=== PATIENT | female | born 1930 | race Caucasian/White ===

== ENCOUNTER 2017-02-15 09:16 | Inpatient (IN) | payer MEDICARE, BC ==
[~2017-02-15] VITALS: Ht 167.6 cm; Wt 70.7 kg
--- NOTE | ~2017-02-15 | HP ---
[facility] AGE: 86 Y [address] ROOM: [place] [id number] LOCATION: [facility] ADMIT DATE: 02/15/2017 History & Physical DISCHARGE DATE: FAMILY PHYSICIAN: Ashok Rodas MD ATTENDING PHYSICIAN: KAYLEE CHENG DATE OF SERVICE: CHIEF COMPLAINT: Failure to ambulate. HISTORY OF PRESENT ILLNESS: An 86-year-old lady with past medical history of hypertension; hyperlipidemia; chronic kidney disease, stage 3; and gout, who lives at home with the ; also has severe dementia and minimal verbalism, presented to the emergency department when she was brought in by her . Most of the history was obtained from the . stated that this morning, she just could not get out of the bed and could not stand up or sit up and failed to ambulate which she is able to do usually, so he brought her in and could not care for her at home. On my encounter, an 86-year-old pleasant lady, who speaks minimally in yes or no answers. On questioning, she said that she is feeling hot and complained of abdominal pain as well as left wrist pain. She denied any chest pain, any shortness of breath, or any dizziness at this point. stated that she never had any blood clots or myocardial infarctions in the past. REVIEW OF SYSTEMS: All other systems reviewed were negative, except what is mentioned in the HPI. ALLERGIES: THE PATIENT IS ALLERGIC TO BACTRIM. PAST MEDICAL HISTORY: Severe dementia; hypertension; hyperlipidemia; chronic kidney disease, stage 3; and gout. MEDICATIONS: Being reconciled right now. SOCIAL HISTORY: Quit smoking in 1991. Lives with at home. FAMILY HISTORY: Family history was reviewed and was unrelevant to the current condition. PATIENT'S NAME: [facility] AGE: 86 Y [address] ROOM: [address] [place] [id number] LOCATION: [facility] ADMIT DATE: 02/15/2017 History & Physical DISCHARGE DATE: FAMILY PHYSICIAN: Ashok Rodas MD ATTENDING PHYSICIAN: KAYLEE CHENG PHYSICAL EXAMINATION: VITAL SIGNS: Blood pressure 157/67, temperature 99, pulse 90, respiratory rate of 16. GENERAL: No acute distress. Appears alert and oriented. CARDIOVASCULAR: S1 and S2. No murmurs, gallops, or rubs. LUNGS: Clear to auscultation bilaterally. ABDOMEN: Soft. Tender in all quadrants. Bowel sounds are present. EXTREMITIES: +2 extremity edema, more on the left side than the right. HEENT: Head: Atraumatic, normocephalic. MUSCULOSKELETAL: Left wrist swelling and tenderness on passive as well as active motion noted. Erythema on both palmar as well as dorsal aspect noted. SKIN: No bruises noted, but erythema of the left wrist noted. LABORATORY DATA: Lab work done today in the emergency department was significant for lactate of 2.1. WBC count of 15, platelets 230, hemoglobin of 11. Creatinine 1.2, BUN 26, sodium 138, potassium 3.8, chloride 102, bicarb 23. Liver enzymes were within normal limits. ESR was up to 50. INR normal. UA was negative for any infection. CRP was elevated at 5.9. Procalcitonin was negative. The left wrist joint was tapped by the emergency physician showing pink color of the synovial fluid and clear turbidity. WBC count was only 55. No crystals were seen. ASSESSMENT: 1. Left wrist swelling, likely cellulitis versus gout. 2. Acute kidney injury on chronic kidney disease. 3. Hypertension. 4. Hyperlipidemia. 5. Dementia. PLAN: We are going to admit this patient for observation, give IV fluids, obtain blood cultures, and start our antibiotics including ertapenem. We were not able to see any crystals neither high white count, but she did have a history of gout. We will treat her with colchicine for only two doses. Treat the cellulitis with ertapenem. DVT prophylaxis will be provided. CT scan of the abdomen was done and per verbal report was negative for any acute intraabdominal abnormalities. We will watch her in the hospital until a definitive diagnosis comes up. Her further management will depend on her progress in the hospital. PATIENT'S NAME: DARRYL REDMOND [facility] AGE: 86 Y [address] ROOM: [place] [address] LOCATION: [facility] ADMIT DATE: 02/15/2017 History & Physical DISCHARGE DATE: FAMILY PHYSICIAN: Ashok Rodas MD ATTENDING PHYSICIAN: KAYLEE CHENG MD SARAHY/modl /[id number] D: [id number] T: [id number] HISTORY & PHYSICAL
--- NOTE | ~2017-02-15 | CON ---
[facility] AGE: 86 Y [address] ROOM: [id number] [place], [place] [address] LOCATION: [facility] ADMIT DATE: 02/15/2017 Consultation DISCHARGE DATE: 02/17/2017 FAMILY PHYSICIAN: Ashok Rodas MD ATTENDING PHYSICIAN: Kristi Burton DATE OF CONSULTATION: 02/17/2017 ORTHOPEDIC CONSULTATION CHIEF COMPLAINT/REASON FOR CONSULTATION: Left knee pain. HISTORY OF PRESENT ILLNESS: This 86-year-old female has been at [facility] since 02/15/2017 with generalized weakness, leukocytosis, and elevated inflammatory markers status post joint aspiration. She has a 5-day history of pain and swelling in her left knee and questionable history of gout. She was placed on some steroids and that has helped a little, but it still hurts and causes her to limp. It keeps her up at night. It is both medially and laterally. She has a history of significant dementia. Her helps with the history. No fevers or chills. Pain is worse with activity and relieved by rest. She says she may have had a low-grade fever at home. She is on no antibiotics. No nausea or vomiting or diarrhea or cough or shortness of breath. PAST MEDICAL HISTORY: 1. Hypertension. 2. Dyslipidemia. 3. Osteoarthritis. 4. Lumbar spinal stenosis. 5. Osteoporosis. 6. Osteopenia. 7. Cataract. 8. Gout. 9. Gastroesophageal reflux disease. 10. Dementia. PAST SURGICAL HISTORY: 1. Appendectomy. 2. Right knee surgery. 3. Hysterectomy. 4. Umbilical herniorrhaphy. SOCIAL HISTORY: No tobacco or alcohol or illicit drug use. She lives with her at [facility] AGE: 86 Y [address] ROOM: [id number] [place], [place] [address] LOCATION: [facility] ADMIT DATE: 02/15/2017 Consultation DISCHARGE DATE: 02/17/2017 FAMILY PHYSICIAN: Ashok Rodas MD ATTENDING PHYSICIAN: Kristi Burton [place]. ALLERGIES: LODINE, BACTRIM, AND CELEBREX. PRIMARY CARE DOCTOR: Ashok Rodas MD MEDICATIONS: 1. Allopurinol. 2. Amlodipine. 3. Aspirin. 4. Docusate. 5. Ezetimibe. 6. Furosemide. 7. Gabapentin. 8. Losartan. 9. Multiple vitamin. 10. Spironolactone. 11. Pravastatin. 12. Omeprazole. 13. Calcium. REVIEW OF SYSTEMS: No coughs, colds, fevers, chills, or sore throats. No chest pain, shortness of breath, or trouble breathing. She has had generalized weakness. No nausea, vomiting, or diarrhea. No dysuria or hematuria. She does have some visual and auditory hallucinations at times. PHYSICAL EXAMINATION: GENERAL: She is awake, alert, and oriented x2. Mood and affect; forgetful. VITAL SIGNS: Blood pressure 122/63, pulse 72, respirations 16, and temperature 97.3. She has been afebrile since arriving in the hospital on 02/15/2017. HEENT: Atraumatic and normocephalic. PERRL. EOMI. Throat; clear. NECK: Supple. CHEST: Clear to auscultation. HEART: Regular rhythm. ABDOMEN: Soft, nontender. EXTREMITIES: Shoulders, elbows, and wrists without pain or movement. Left knee has a mild effusion. Trace warmth, trace swelling. Range is 0 to 140 degrees. Drawer and Elijah's negative. No collateral laxity. She ambulates with a limp. She is weak. Leg lengths equal to pelvis level. Knee alignment is satisfactory. Her right knee has good range of motion. She has good pulses. PATIENT'S NAME: DARRYL REDMOND [facility] AGE: 86 Y [address] ROOM: [address] [place] [id number] LOCATION: [facility] ADMIT DATE: 02/15/2017 Consultation DISCHARGE DATE: 02/17/2017 FAMILY PHYSICIAN: Ashok Rodas MD ATTENDING PHYSICIAN: Kristi Burton DIAGNOSTIC DATA: X-rays of her left femur including the knees show no fractures. There is a small knee joint effusion and some degenerative arthritis with small osteophytes. LABORATORY DATA: Her labs include a white cell count of 15 on admission. Sedimentation rate was 50. Lactate 2.1. BUN 26, creatinine 1.2. Procalcitonin 0.06. IMPRESSION: 1. Degenerative arthritis, left knee. Low probability of gout. 2. Hypertension. 3. Generalized weakness. 4. Unstable gait. 5. Hyperlipidemia. 6. Dementia. 7. Chronic kidney disease. PLAN: Risks and benefits were discussed with patient and . Left knee was sterilely prepped. Aspirated with an 18-gauge needle for 25 mL of slightly cloudy fluid. This was sent for Gram stain, crystal stain, culture and sensitivity. Left knee injected with 80 mg Depo-Medrol and 5 mL of 1% lidocaine. Tolerated well. Exercises given. She may be discharged. She is to follow up in the office in 1 week. MD RYLAN WILKINS/raji /[id number] d: 02/17/17 2226 t: 02/26/17 0944, CONSULTATION REPORT
--- NOTE | ~2017-02-15 | ER ---
[facility] AGE: 86 Y [address] ROOM: [place] [id number] LOCATION: [facility] ADMIT DATE: 02/15/2017 ER/Outpatient Report DISCHARGE DATE: FAMILY PHYSICIAN: Ashok Rodas MD ATTENDING PHYSICIAN: KAYLEE BURTON Time of Arrival: 0916 hours. Time of Evaluation: 0916 hours. CHIEF COMPLAINT: Weakness and left wrist pain. HISTORY OF PRESENT ILLNESS: The patient is an 86-year-old female, who presents to the emergency department today with a chief complaint of weakness and left wrist pain. The patient does have a history of significant dementia. She is accompanied by her , who is the patient's primary caregiver. The patient herself denies any symptoms at this time. Denies any pain. The patient's reports that since this morning the patient has progressively gotten weak. She is unable to stand up on her own normally. has been unable to help the patient up. Ambulance was called. also notes that left wrist is erythematous and swollen, seems to be in pain. She has had a low-grade fever at home. No chills. No nausea or vomiting. No diarrhea or constipation. No chest pain. No cough. No shortness of breath. PAST MEDICAL HISTORY: 1. Hypertension. 2. Dyslipidemia. 3. Osteoarthritis. 4. Lumbar spinal stenosis. 5. Osteoporosis. 6. Osteopenia. 7. Cataract. 8. Gout. 9. Gastroesophageal reflux disease. 10. Dementia. PAST SURGICAL HISTORY: 1. Appendectomy. 2. Umbilical hernia. 3. Hysterectomy x2. 4. Right knee arthroscopy. SOCIAL HISTORY: [facility] AGE: 86 Y [address] ROOM: [address] [place] [id number] LOCATION: [facility] ADMIT DATE: 02/15/2017 ER/Outpatient Report DISCHARGE DATE: FAMILY PHYSICIAN: Ashok Rodas MD ATTENDING PHYSICIAN: KAYLEE BURTON The patient denies any tobacco, alcohol, or illicit drug use. ALLERGIES: TO LODINE, BACTRIM, CELEBREX. MEDICATIONS: Please see list. PRIMARY CARE DOCTOR: Ashok Rodas MD. REVIEW OF SYSTEMS: All systems are reviewed by myself and negative with the exception of those discussed in HPI and past medical history. PHYSICAL EXAMINATION: VITAL SIGNS: Blood pressure 157/94, pulse 90, respiratory rate 16, temperature 99.5, and oxygen saturation 97% on room air. GENERAL: The patient is an 86-year-old female, who appears her stated age, pleasantly demented. HEENT: Normocephalic, atraumatic. Pupils are equal, round, and reactive to light. Extraocular motions are intact. Nares are patent bilaterally. TMs are clear. Oropharynx is clear. NECK: Supple. No nuchal rigidity. CARDIOVASCULAR: Regular rate and rhythm. LUNGS: Clear to auscultation bilaterally. ABDOMEN: Soft with moderate right lower quadrant tenderness to palpation. There is no rebound, rigidity, or guarding. Positive bowel sounds. MUSCULOSKELETAL: The patient moves all 4 extremities. The patient's left wrist is tender to range of motion. It is swollen and erythematous. SKIN: Warm and dry. No rashes or lesions noted. LABS AND X-RAYS: Lactate is 2.1. CBC: White blood cell count 15.2, otherwise, normal. ANC is 12.3. Coags are normal. CMP is unremarkable, except for BUN 26, creatinine 1.2. LFTs are normal. CK, CK-MB, troponin normal. CRP is 5.9. ProBNP is normal. Urinalysis shows 50 blood, 10-20 rbc's. Procalcitonin 0.06. ESR is 50. PATIENT'S NAME: DARRYL REDMOND [facility] AGE: 86 Y [address] ROOM: [address] [place] [id number] LOCATION: [facility] ADMIT DATE: 02/15/2017 ER/Outpatient Report DISCHARGE DATE: FAMILY PHYSICIAN: Ashok Rodas MD ATTENDING PHYSICIAN: KAYLEE BURTON A CT scan of the abdomen and pelvis is negative. Gram stain is negative and clear. RBCs and WBCs are unremarkable. IMPRESSION: 1. Generalized weakness. 2. Leukocytosis. 3. Elevated inflammatory markers. 4. Status post joint aspiration. 5. Initial visit. EMERGENCY DEPARTMENT COURSE: The patient was brought back to the examination room. The patient is seen and evaluated by myself. IV is established. Laboratory analysis and imaging are obtained as described above. X-rays of the left wrist were also obtained. It showed no evidence of fracture or dislocation. The patient is given a gram of Tylenol. I did discuss consent for joint aspiration of the left wrist with the patient's and the patient herself. Written consent is obtained. The risks and benefits are discussed. The patient does wish to proceed. The procedure was performed by myself. 1% lidocaine without epinephrine was used subcutaneously. An 18-gauge needle was utilized to aspirate 2 mL of joint fluid from the left wrist. This was sent for evaluation. This was clear in nature. I did discuss the results with the patient and her at the bedside. The patient certainly has elevation of her white blood cell count and lactate as well as CRP and ESR. I see no other obvious source other than the wrist, which does not appear to be infected on joint analysis. The patient is weak and is unable to perform activities of daily living as before. With these, the patient will require admission to the hospital for further evaluation, treatment, and management. I have discussed the case with Dr. Burton with the hospitalist service. He has seen and evaluated the patient down here in the emergency department. He does agree to accept the patient for further evaluation, treatment, and management. Please see his dictation. DISPOSITION: The patient is admitted under the care of hospitalist service and Dr. Burton in stable condition. BENNY BURGER DO PATIENT'S NAME: DARRYL REDMOND [facility] AGE: 86 Y [address] ROOM: [place] [address] LOCATION: [facility] ADMIT DATE: 02/15/2017 ER/Outpatient Report DISCHARGE DATE: FAMILY PHYSICIAN: Ashok Rodas MD ATTENDING PHYSICIAN: KAYLEE BURTON/raji /[id number] d: 02/16/17 0001 t: 02/19/17 0641, OUTPATIENT REPORT
--- NOTE | ~2017-02-15 | DS ---
PATIENT'S NAME: DARRYL REDMOND [facility] AGE: 86 Y [address] ROOM: [address] [address] LOCATION: [facility] ADMIT DATE: 02/15/2017 Discharge Summary DISCHARGE DATE: 02/17/2017 FAMILY PHYSICIAN: Ashok Rodas MD ATTENDING PHYSICIAN: Kristi Burton PRIMARY DIAGNOSES: 1. Generalized weakness. 2. Aphasia. 3. Left wrist synovitis. 4. Left knee pain and swelling. 5. Chronic conditions include osteoarthritis and essential hypertension. PRINCIPAL PROCEDURES DONE FOR THE PATIENT: Includes left knee aspiration by Dr. Naranjo. LABORATORY DATA: On admission, lactic acid is 2.1, prior to discharge was 1.2. Troponin less than 0.040. Pro-BNP 359. CPK 34. WBC on admission was 15.2, prior to discharge was 9.2, H and H on admission was 11.0/34.4, prior to discharge was 11.0/33.8, and platelet was stable throughout the hospital stay at 235 upon discharge. Sodium on admission was 138, was stable throughout hospital stay, at 138 upon discharge; creatinine was also stable throughout the hospital stay at 1.0 upon discharge; BUN was stable; potassium on admission was 3.8, was also stable at 3.7 upon discharge; bicarb was stable at 26 upon discharge. Liver function tests were within normal limits. ESR on admission was 50, on the day of discharge was 70, INR was 1.0. UA was leukocytes negative, nitrite negative, wbc 0-2, bacteria negative, CRP 5.9, procalcitonin 0.06, TSH 1.1. Synovial fluid analysis for the wrist, color is pink, clear, rbc 1750, wbc 55, neutrophil differential 2%, lymphocyte 58, and monocytes 40. MICROBIOLOGY: Blood culture x2 sets, no growth to date, synovial fluid no growth at 2 days, repeat blood culture no growth at 2 days, and repeat left knee aspirate pending. RADIOLOGY: X-ray of the wrist, no acute fracture. CT abdomen and pelvis, no acute findings, dilated CBD 12 mm, likely benign postop related, correlate with bilirubin and LFTs. Appendix not seen. No evidence of appendicitis. X- ray of the femur, left, no left femur fracture identified, no knee or hip dislocations, small knee joint effusion. X-ray of the pelvis, no acute fracture identified at the pelvis or hips, mild DJD changes at the hips. X- ray lumbar, height of lumbar vertebrae maintained with no acute bone fracture identified, mild scoliosis, and degenerative changes at lumbar intervertebral levels. PATIENT'S NAME: DARRYL REDMOND [facility] AGE: 86 Y [address] ROOM: [place] [address] [facility]: 02/15/2017 Discharge Summary DISCHARGE DATE: 02/17/2017 FAMILY PHYSICIAN: Ashok Rodas MD ATTENDING PHYSICIAN: Kristi Burton [facility]RSE: For history of present illness, please take a look at the H and P, which was done by Dr. Burton. The patient was admitted to Neurotrauma Unit. Given her presentation of left wrist pain and also left knee, working differential was acute gout flare versus probable cellulitis; so, the patient was started empirically on antibiotics of ertapenem, had a dose, and also was given a colchicine as well. However, by the next day of the hospital stay, after there was no evidence, no sign of infection, the ertapenem was discontinued, the patient was observed, cultures remained negative including the left wrist aspirate, and the patient continued to make clinical improvement regarding her mental status and her white cell count continued to trend down, and by the next day, the patient began to ambulate on the hallway without much problem with a walker. On the day of discharge, the patient's really wanted the patient to be discharged home. He refused Home Health as he reports that he is capable of taking care of the , which he has been doing now for a while. He reported that her mental status was at her baseline; and given the finding of the x-ray of the knee, we also consulted Dr. Naranjo, for evaluation of the left knee effusion and he did go ahead and do an aspirate, which yielded about 30 mL of greenish colored synovial fluid, which was sent for analysis. Following the procedure, the patient remained comfortable though still with difficulty finding words. reports that this is her baseline and so vital signs were stable and the patient was discharged home with the . MEDICATION ON DISCHARGE: Included: 1. Allopurinol 150 mg p.o. daily. 2. Norvasc 5 mg p.o. daily. 3. Aspirin 325 mg p.o. at bedtime. 4. Colace 100 mg p.o. q.h.s. 5. Zetia 10 mg p.o. at bedtime. 6. Lasix 20 mg p.o. daily. 7. Neurontin 100 mg p.o. q.h.s. 8. Cozaar 50 mg p.o. daily. 9. Multivitamin 1 tablet p.o. q.h.s. 10. Prilosec 20 mg p.o. daily. 11. Pravachol 40 mg p.o. 3 times daily. 12. Aldactone 25 mg p.o. daily. 13. Allbee with vitamin C 1 tablet p.o. daily. 14. Tylenol 650 mg p.o. q.6 h. p.r.n. 15. Citracal 0.5 tablet p.o. twice daily. DISCHARGE INSTRUCTIONS: Include the patient is to follow with Dr. Rodas in the next 3-5 days her PCP and also with Dr. Naranjo, the Orthopedics, in the next 1 week. PATIENT'S NAME: DARRYL REDMOND [facility] AGE: 86 Y [address] ROOM: [place] [address] LOCATION: [facility] ADMIT DATE: 02/15/2017 Discharge Summary DISCHARGE DATE: 02/17/2017 FAMILY PHYSICIAN: Ashok Rodas MD ATTENDING PHYSICIAN: Kristi Burton MELE CADE MD ODO/modl /[id number] d: 02/18/17 0206 t: 02/20/17 1651, DISCHARGE SUMMARY
[2017-02-15 10:05] LABS: BASOPHIL # 0.1 K/uL (0.0-0.2); BASOPHIL % 0.3 %; HEMATOCRIT 34.3 % (30.0-46.0); IMMATURE GRANULOCYTE # 0.1 K/uL (0.0-0.3); IMMATURE GRANULOCYTE % 0.4 %; LYMPHOCYTE # 1.2 K/uL (0.8-4.0); LYMPHOCYTE % 7.9 %; MCH 30.9 pg (27.0-34.0); MCHC 32.1 gm/dL (32.0-36.5); MCV 96.3 fl (83.0-98.0); MONOCYTE # 1.6 K/uL (0.0-1.0); MONOCYTE % 10.2 %; MPV 10.1 fl (9.4-12.4); NEUTROPHIL # (ANC) 12.3 K/uL (1.8-7.8); NEUTROPHIL % 81.2 %; NRBC % 0 /100WBC (0-0.00); PLATELET COUNT 230 K/uL (150-450); RBC 3.56 M/uL (3.00-5.00); RDW-CV 13.2 % (11.9-14.6); WBC 15.2 K/uL (4.0-11.0)
[2017-02-15 10:12] LABS: PROTIME 10.5 SECONDS (9.8-11.4); PTT 25 SECONDS (25-32)
[2017-02-15 10:32] LABS: ALBUMIN 3.8 gm/dL (3.5-5.0); ALK PHOS 84 IU/L (33-138); ALT 19 IU/L (12-78); ANION GAP 16.8 (10.0-19.0); AST 19 IU/L (10-40); BLOOD UREA NITROGEN 26 mg/dL (6-24); CALCIUM 9.4 mg/dL (8.5-10.5); CHLORIDE 102 mMol/L (96-110); CO2 23 mMol/L (22-32); CPK 34 IU/L (21-215); CREATININE 1.2 mg/dL (0.5-1.1); ESTIMATED GFR (MDRD EQUATION) 43; POTASSIUM 3.8 mMol/L (3.7-5.1); SODIUM 138 mMol/L (135-145); TOTAL BILIRUBIN 0.8 mg/dL (0.0-1.5); TOTAL PROTEIN 7.9 g/dL (6.0-8.4)
[2017-02-15 10:33] LABS: BILIRUBIN URINE NEGATIVE (NEGATIVE); BLOOD URINE 50 /UL (NEGATIVE); COLOR URINE YELLOW (YELLOW); GLUCOSE URINE NEGATIVE (NEGATIVE); KETONE URINE NEGATIVE (NEGATIVE); LEUKOCYTES URINE NEGATIVE /UL (NEGATIVE); NITRITE URINE NEGATIVE (NEGATIVE); PROTEIN URINE NEGATIVE (NEGATIVE); TURBIDITY URINE CLEAR (CLEAR); UROBILINOGEN URINE NORMAL (NORMAL)
[2017-02-15 10:41] LABS: BACTERIA URINE NEGATIVE (NEGATIVE); EPITHELIAL URINE NEGATIVE #/HPF (NEGATIVE); WBC URINE 0-2 #/HPF (NEGATIVE)
[2017-02-16 04:58] LABS: BASOPHIL % 0.2 %; EOSINOPHIL % 0.1 %; HEMATOCRIT 33.2 % (30.0-46.0); HEMOGLOBIN 10.8 g/dL (10.0-15.0); IMMATURE GRANULOCYTE % 0.2 %; LYMPHOCYTE # 1.5 K/uL (0.8-4.0); LYMPHOCYTE % 11.7 %; MCH 30.8 pg (27.0-34.0); MCHC 32.5 gm/dL (32.0-36.5); MCV 94.6 fl (83.0-98.0); MONOCYTE # 1.6 K/uL (0.0-1.0); MONOCYTE % 12.5 %; MPV 9.9 fl (9.4-12.4); NEUTROPHIL # (ANC) 9.3 K/uL (1.8-7.8); NEUTROPHIL % 75.3 %; NRBC % 0 /100WBC (0-0.00); PLATELET COUNT 202 K/uL (150-450); RBC 3.51 M/uL (3.00-5.00); WBC 12.4 K/uL (4.0-11.0)
[2017-02-16 05:19] LABS: ALBUMIN 3.3 gm/dL (3.5-5.0); ANION GAP 11.6 (10.0-19.0); CALCIUM 9.4 mg/dL (8.5-10.5); CREATININE 0.9 mg/dL (0.5-1.1); POTASSIUM 3.6 mMol/L (3.7-5.1)
[2017-02-16 05:25] LABS: TOTAL BILIRUBIN 0.6 mg/dL (0.0-1.5)
[2017-02-16] MEDS ORDERED: NORVASC5 MG PO (09:02)
[2017-02-16] MEDS ORDERED: LASIX20 MG PO (09:02)
[2017-02-16] MEDS ORDERED: COZAAR50 MG PO (09:02)
[2017-02-16] MEDS ORDERED: ALLOPURINOL300 MG PO (09:03)
[2017-02-16] MEDS ORDERED: ALDACTONE25 MG PO (09:03)
[2017-02-16] MEDS ORDERED: ZETIA10 MG PO (09:03)
[2017-02-16] MEDS ORDERED: PRILOSEC20 MG PO (09:03)
[2017-02-16] MEDS ORDERED: NEURONTIN100 MG PO (09:04)
[2017-02-16] MEDS ORDERED: [UNRECOGNIZED DRUG - OTHER] PO (09:05)
[2017-02-16] MEDS ORDERED: PRAVACHOL40 MG PO (09:05)
[2017-02-16] MEDS ORDERED: ASPIRIN325 MG PO (09:06)
[2017-02-16] MEDS ORDERED: COLACE100 MG PO (09:06)
[2017-02-16] MEDS ORDERED: CITRACAL + D M1 EACH PO (09:06)
[2017-02-16] MEDS ORDERED: THERAGRAN-M1 TAB PO (09:07)
[2017-02-17 04:20] LABS: BASOPHIL % 0.4 %; EOSINOPHIL # 0.1 K/uL (0.0-0.5); EOSINOPHIL % 1.2 %; HEMATOCRIT 33.8 % (30.0-46.0); IMMATURE GRANULOCYTE % 0.3 %; LYMPHOCYTE % 21.4 %; MCH 31.1 pg (27.0-34.0); MCHC 32.5 gm/dL (32.0-36.5); MCV 95.5 fl (83.0-98.0); MONOCYTE # 1.3 K/uL (0.0-1.0); MONOCYTE % 14.6 %; MPV 9.7 fl (9.4-12.4); NEUTROPHIL # (ANC) 5.7 K/uL (1.8-7.8); NEUTROPHIL % 62.1 %; NRBC % 0 /100WBC (0-0.00); PLATELET COUNT 235 K/uL (150-450); RBC 3.54 M/uL (3.00-5.00); RDW-CV 12.8 % (11.9-14.6); WBC 9.2 K/uL (4.0-11.0)
[2017-02-17 04:39] LABS: ALBUMIN 3.1 gm/dL (3.5-5.0); ANION GAP 12.7 (10.0-19.0); CALCIUM 9.3 mg/dL (8.5-10.5); PHOSPHORUS 2.3 mg/dL (2.5-4.9); POTASSIUM 3.7 mMol/L (3.7-5.1)
[2017-02-17] MEDS ORDERED: TYLENOL325 MG PO (15:12)
== END 2017-02-17 15:57 | disposition disaster alternative care site (69) | DRG 554 ==
LOC: GMED 09:16 → GNTU 16:39
PROVIDERS: Emergency Medicine; Family Medicine; ADMIT Internal Medicine
PROC: 0S9D3ZX Drainage of Left Knee Joint, Percutaneous Approach, Diagnostic (ICD-10-PCS; principal; 2017-02-17)
DX: M10.9 Gout, unspecified (principal); N17.9 Acute kidney failure, unspecified; F80.2 Mixed receptive-expressive language disorder; F03.90 Unspecified dementia, unspecified severity, without behavioral disturbance, psychotic disturbance, mood disturbance, and anxiety; M17.12 Unilateral primary osteoarthritis, left knee; M65.88 Other synovitis and tenosynovitis, other site; I12.9 Hypertensive chronic kidney disease with stage 1 through stage 4 chronic kidney disease, or unspecified chronic kidney disease; N18.3 Chronic kidney disease, stage 3 (moderate); E78.5 Hyperlipidemia, unspecified; M81.0 Age-related osteoporosis without current pathological fracture; K21.9 Gastro-esophageal reflux disease without esophagitis
CPT/HCPCS: J1040; J1335; J1644; J2001; J7050; J7120

== ENCOUNTER → 2017-02-15 | Outpatient (CLI) | payer MEDICARE, BC ==
[~2017-02-15] MED LIST: ALDACTONE25 MG PO; ALLOPURINOL300 MG PO; ASPIRIN325 MG PO; CITRACAL + D M1 EACH PO; COLACE100 MG PO; COZAAR50 MG PO; LASIX20 MG PO; NEURONTIN100 MG PO; NORVASC5 MG PO; PRAVACHOL40 MG PO; PRILOSEC20 MG PO; THERAGRAN-M1 TAB PO; TYLENOL325 MG PO; ZETIA10 MG PO; [UNRECOGNIZED DRUG - OTHER] PO
== END | disposition disaster alternative care site (69) ==
LOC: GAMB 09:00
DX: R53.1 Weakness (principal); M25.539 Pain in unspecified wrist; G30.9 Alzheimer's disease, unspecified; F02.80 Dementia in other diseases classified elsewhere, unspecified severity, without behavioral disturbance, psychotic disturbance, mood disturbance, and anxiety
CPT/HCPCS: A0425; A0429